=== PATIENT | male | born 1950 | race Caucasian/White ===

== ENCOUNTER 2017-07-07 16:45 | Emergency (ER) | payer MEDICARE ==
[2017-07-07 16:51] VITALS: BP 143/64
--- NOTE | 2017-07-07 17:02 | ER Document Report ---
ED General - General Chief Complaint: Skin Sore(s) Stated Complaint: SKIN PROBLEM Time Seen by Provider: 07/07/17 16:49 Notes: 66-year-old male here with complaints of facial pain due to a lesion that he states has been diagnosed as cancer. He is here because he wants it removed immediately. His long haul truck driver, Dr. Simms in [place], prescribed him fluorouracil cream which patient states is not working. He states that he did not want to wait for the holidays to be over and wants it removed right now. Of note, he is also on Keflex which was prescribed by his doctor. TRAVEL OUTSIDE OF THE [place] IN LAST 30 DAYS: No - Related Data Allergies/Adverse Reactions: Shellfish * [Shellfish] Allergy (Severe, Verified 07/07/17 16:45) Past Medical History - Social History Smoking Status: Unknown if Ever Smoked Family History: Reviewed & Not Pertinent Patient has suicidal ideation: No Patient has homicidal ideation: No - Past Medical History Cardiac Medical History: Reports: Hx Hypertension Denies: Hx Coronary Artery Disease, Hx Heart Attack Pulmonary Medical History: Denies: Hx Asthma, Hx Bronchitis, Hx COPD, Hx Pneumonia Neurological Medical History: Denies: Hx Cerebrovascular Accident, Hx Seizures Renal/ Medical History: Denies: Hx Peritoneal Dialysis Musculoskeltal Medical History: Denies Hx Arthritis Past Surgical History: Denies: Hx Pacemaker - Immunizations Hx Diphtheria, Pertussis, Tetanus Vaccination: Yes - 2002 Review of Systems - Review of Systems Notes: See history of present illness for pertinent positive review of systems; otherwise all review of systems have been reviewed and are negative Physical Exam - Vital signs Vitals: Temp Pulse Resp BP Pulse Ox 97.7 F 63 16 143/64 H 98 07/07/17 16:50 07/07/17 16:50 07/07/17 16:50 07/07/17 16:50 07/07/17 16:50 - Notes Notes: PHYSICAL EXAMINATION: GENERAL: Well-appearing and in no acute distress. HEAD: Atraumatic, normocephalic. There is a 4 x 4 centimeter area of slight skin discoloration on the right side of the face on the lateral most cheek with no signs of cellulitis EYES: Pupils equal round and reactive to light, extraocular movements intact, sclera anicteric, conjunctiva are normal. ENT: nares patent, oropharynx clear without exudates. Moist mucous membranes. NECK: Normal range of motion, supple without lymphadenopathy LUNGS: CTAB and equal. No wheezes rales or rhonchi. HEART: Regular rate and rhythm without murmurs ABDOMEN: Soft, no tenderness. No facial grimacing/wincing upon palpation. No guarding, no rebound. EXTREMITIES: Normal range of motion, no pitting edema. No cyanosis. NEUROLOGICAL: Cranial nerves grossly intact. Normal sensory/motor exams. PSYCH: Normal mood, normal affect. SKIN: Warm, Dry, normal turgor, no rashes or lesions noted Course - Re-evaluation Re-evalutation: 07/07/17 17:02 MEDICAL DECISION MAKING: Discussed with patient that we do not perform skin cancer removal in the ED Discussed with him he would need to be set up as an outpatient procedure Patient requested information for a long haul truck driver in the area so I provided him with Dr. Nails information There is no acute emergency medical condition today Patient understands and agrees to the plan of care - Vital Signs Vital signs: Temp Pulse Resp BP Pulse Ox 97.7 F 63 16 143/64 H 98 07/07/17 16:50 07/07/17 16:50 07/07/17 16:50 07/07/17 16:50 07/07/17 16:50 Discharge - Discharge Clinical Impression: Skin lesion of face Condition: Good Disposition: HOME, SELF-CARE Additional Instructions: You were seen in the emergency department at [facility]. If you would like to have a skin lesion removed, you will need to schedule the procedure as an outpatient procedure. Please followup with your primary long haul truck driver (or you may call Dr. Nails whose information is attached) in the next few days for further management/evaluation. Please return to the emergency department for worsening of symptoms or any symptom that you deem to be concerning or life-threatening. Thank you for allowing us to be part of your care. Referrals: SHIVAM NAILS DO [ACTIVE STAFF] - 07/09/17
== END 2017-07-07 17:02 | disposition home or self-care (01) ==
LOC: ER 16:45
DX: C44.300 Unspecified malignant neoplasm of skin of unspecified part of face (principal); Z79.899 Other long term (current) drug therapy; R51 Headache; I10 Essential (primary) hypertension; Z91.013 Allergy to seafood
CPT/HCPCS: 99283